=== PATIENT | female | born 2000 | race Caucasian/White ===

== ENCOUNTER 2022-09-01 08:51 | Emergency (ER) | payer BC ==
[~2022-09-01] VITALS: Ht 162.6 cm; Wt 75.0 kg
[~2022-09-01 08:51] MED LIST: BACTRIM DS 8001 TAB PO
[2022-09-01 08:58] VITALS: BP 111/78; TEMP 98.4
[2022-09-01] MEDS ORDERED: DOXYCYCLINE 10100 MG PO (09:24)
[2022-09-01 09:29] VITALS: PULSE 88
== END 2022-09-01 09:30 | disposition home or self-care (01) ==
LOC: COL.ER 08:51
DX: L02.411 Cutaneous abscess of right axilla (principal); Z88.0 Allergy status to penicillin; Z88.2 Allergy status to sulfonamides; Z28.310 Unvaccinated for COVID-19